=== PATIENT | female | born 1985 | race Caucasian/White ===

== ENCOUNTER 2016-11-15 18:31 | Emergency (ER) | payer OTHER ==
[~2016-11-15] VITALS: Ht 165.1 cm; Wt 68.0 kg
[~2016-11-15 18:31] MED LIST: ALBU18HF INHALATION; RANI150T9 PO
[2016-11-15 18:43] VITALS: Ht 165.1 cm; Wt 68.0 kg
--- NOTE | 2016-11-15 19:05 | EN ---
Date/Time of Note Date/Time of Note DATE: 11/15/16 TIME: 19:03 CIELO WRIGHT NP Nov 15, 2016 19:05 will be sent to ED2 for medications. CIELO WRIGHT NP Nov 15, 2016 19:05
--- NOTE | 2016-11-15 19:19 | ERD ---
ER Documentation Chief Complaint Date/Time DATE: 11/15/16 TIME: 19:14 Chief Complaint sore throat/cough x 1 day. denies abd pain HPI 30-year-old female who is approximately 31 weeks is complaining of sore throat since last night, and cough since this morning. Patient states that she cannot eat anything because of pain, and is feeling weak. She is also complaining of headache and already chest pain. Patient reports normal movements. Patient has history of asthma. She did not take any medications at home. Denies fever. Denies shortness of breath. Denies abdominal pain or pelvic pain. Denies vaginal bleeding or other vaginal discharge. ROS All systems reviewed and are negative except as per history of present illness. Medications Home Meds Active Scripts Sodium Chloride (Saline Nasal Mist) 126 Ml Mist, 2 SPRAY NASAL Q2H Y for NASAL CONGESTION, #1 BOTTLE Prov:CIELO WRIGHT. STEEL ENGRAVER 11/15/16 Acetaminophen* (Tylophen*) 500 Mg Capsule, 1 CAP PO Q6H Y for PAIN AND OR ELEVATED TEMP, #20 CAP Prov:CIELO WRIGHT. STEEL ENGRAVER 11/15/16 Ranitidine Hcl* (Zantac*) 150 Mg Tablet, 150 MG PO BID Y for EPIGASTRIC PAIN, # 30 TAB Prov:YU JONES DO 04/22/16 Albuterol Sulfate* (Ventolin HFA*) 18 Gm Hfa.aer.ad, 2 PUFF INHALATION Q4H, #1 INHALER Prov:KYAW MALONEY PA-C 03/21/16 Allergies Allergies: Coded Allergies: No Known Drug Allergies (Verified Allergy, Unknown, 11/15/16) PMhx/Soc History of Surgery: No Anesthesia Reaction: No Hx Neurological Disorder: No Hx Respiratory Disorders: Yes (BRONCHITIS) Hx Cardiac Disorders: No Hx Psychiatric Problems: No Hx Miscellaneous Medical Probl: Yes (GASTRIC ULCER) Hx Alcohol Use: Yes (X1DAY/WEEK) Hx Substance Use: No Hx Tobacco Use: Yes (X1PACK/WEEK) Physical Exam Vitals Vital Signs Date Time Temp Pulse Resp B/P Pulse Ox O2 Delivery O2 Flow Rate FiO2 11/15/16 18:43 99.1 112 20 145/62 97 Physical Exam General impression: Well-developed, well-nourished. Alert, oriented, in no acute distress Head: Normocephalic, atraumatic. Eyes: PERRL, EOM normal. Conjunctiva not injected. ENT: Nasal mucosa erythematous and swollen with clear nasal discharge. Oral mucosa normal. Oropharynx mildly erythematous, no pharyngeal swelling or exudates. Neck: Supple, nontender. No lymphanopathy. No nuchal rigidity. Respiration: Normal respiratory effort. Lungs clear to auscultate bilaterally. No wheezes, rales or rhonchi. Cardiovascular: Regular rate and rhythm. No murmurs or extra heart sounds. Abdomen: Abdomen normal to inspection. Nontender. No masses or organomegaly. Bowel sounds normal. Neuro: Mental status normal, speech normal. SLAG SKIMMER grossly intact. Skin: Normal turgor. No rash or lesions. Psych: Normal mood and affect. Procedures/MDM Patient is afebrile, in no respiratory distress. Lungs are clear to auscultate. I doubt that patient has pneumonia or bronchitis. Likely patient's symptoms are result of viral upper respiratory infection. She has no sign of strep pharyngitis, likely her pharyngitis is viral as well. Patient is approximately 31 weeks , she does not have any abdominal pain or pelvic pain. She reports normal movements. She does not have any vaginal bleed or other vaginal discharge. I have low suspicion for labor. Patient appears well, stable for discharge and outpatient management. Medical decision making shared with patient and family. Education provided to patient and family. Patient and family expressed understanding of the plan. Medications on discharge: Saline nasal spray, Tylenol. Follow-up: Primary care provider in 2-3 days or return to ED if worse. CIELO WRIGHT NP Nov 15, 2016 19:19
[2016-11-15] MEDS ORDERED: SODI126M NASAL (19:20)
[2016-11-15] MEDS ORDERED: ACET500C5 PO (19:20)
== END 2016-11-15 19:22 | disposition home or self-care (01) ==
LOC: E/R 18:31
DX: O99.513 Diseases of the respiratory system complicating pregnancy, third trimester (principal); J02.9 Acute pharyngitis, unspecified; Z3A.31 31 weeks gestation of pregnancy
CPT/HCPCS: 99283

== ENCOUNTER 2016-12-05 23:05 | Outpatient (CLI) | payer OTHER ==
[~2016-12-05] VITALS: Ht 165.1 cm; Wt 68.6 kg
[~2016-12-05 23:05] MED LIST changes: +ACET500C5 PO; +SODI126M NASAL
[2016-12-05 23:32] VITALS: BP 110/63; PULSE 100; RESP 16
[2016-12-05] MEDS ORDERED: PNV91TAB3 PO (23:39)
[2016-12-05] MEDS ORDERED: VERA10 NASAL (23:41)
--- NOTE | 2016-12-06 00:45 | PN ---
Date/Time of Note Date/Time of Note DATE: 12/06/16 TIME: 00:39 OB Subjective Subjective Subjective 31 yo P0 @ 34 wks presents w ctx. She has had abdominal pain all day and has a relative who is sick w a URI. Good FM,no LOF, no VB OB Objective Objective Objective Nml VS Abdomen- gravid, n/t SVE- l/c/p FHT- CAt I [place]- irreg ctx FFN-neg Abdomen: WNL Cervical Dilatation: None Effacement: 0% Accelerations: Accelerations Present Decelerations: No Decelerations Varibility: Moderate OB Assessment/Plan Reason for admission: labor Other Assessment: 31 yo P0 @ 34 wks, r/o PTL - reassuring status - neg FFN - has some irreg ctx Other plan: will IV hydrate CBC and U/a to r/o infection BPP If all nml, d/c home w PTL precautions BLANCA ARREDONDO MD Dec 06, 2016 00:45
[2016-12-06] MEDS ORDERED: LACTATED RINGER'S 1,000 ML IV ONE (01:00)
[2016-12-06 01:08] LABS: ADD UMIC YES; URINE BILIRUBIN (Dip) NEGATIVE (NEGATIVE); URINE BLOOD (Dip) NEGATIVE (NEGATIVE); URINE COLOR LT. YELLOW (YELLOW); URINE GLUCOSE (Dip) NEGATIVE (NEGATIVE); URINE KETONES (Dip) 3+ (NEGATIVE); URINE LEUKOCYTE ESTERASE (Dip) TRACE (NEGATIVE); URINE NITRITE (Dip) NEGATIVE (NEGATIVE); URINE TOTAL PROTEIN (Dip) NEGATIVE (NEGATIVE); URINE UROBILINOGEN (Dip) 0.2 E.U./dL (0.1-1.0)
[2016-12-06 01:29] LABS: ADD SCAN DIFF NO
[2016-12-06 01:37] LABS: BASOPHIL # 0.1 10^3/ul (0.0-0.1); BASOPHILS % 0.3 % (0.0-2.0); EOSINOPHILS # 0.1 10^3/ul (0.0-0.5); EOSINOPHILS % 0.7 % (0.0-7.0); HEMATOCRIT 39.8 % (37.0-47.0); HEMOGLOBIN 13.4 g/dl (12.0-16.0); LYMPHOCYTES # 1.6 10^3/ul (0.8-2.9); LYMPHOCYTES % 11.1 % (15.0-51.0); MEAN CORPUSCULAR HEMOGLOBIN 30.7 pg (29.0-33.0); MEAN CORPUSCULAR HGB CONC 33.7 g/dl (32.0-37.0); MEAN CORPUSCULAR VOLUME 91.1 fl (82.0-101.0); MEAN PLATELET VOLUME 9.4 fl (7.4-10.4); MONOCYTE # 0.7 10^3/ul (0.3-0.9); MONOCYTES % 4.9 % (0.0-11.0); NEUTROPHIL # 12.2 10^3/ul (1.6-7.5); NEUTROPHILS % 82.6 % (39.0-77.0); PLATELET COUNT 327 10^3/UL (140-415); RED BLOOD COUNT 4.37 10^6/ul (4.20-5.40); RED CELL DISTRIBUTION WIDTH 12.6 % (11.5-14.5); WHITE BLOOD COUNT 14.7 10^3/ul (4.8-10.8)
[2016-12-06 01:37] LABS: SQUAMOUS EPITHELIAL CELL,UR RARE; URINE RBCS 0-2 /HPF (0)
--- NOTE | 2016-12-06 01:43 | RADRPT ---
PROCEDURE: Biophysical profile. CLINICAL INDICATION: Pelvic pain. TECHNIQUE: Multiple sonographic images of the pelvis were obtained with transabdominal technique. COMPARISON: No prior studies are available for comparison. FINDINGS: There is a single living intrauterine gestation with the fetus in a vertex position. The placenta i s anterior in location, grade 1. heart tones of 137 beats per minute are identified. There is normal amniotic fluid volume with an MAURICIO of 10.3 cm. breathing movements = 2 Gross body movements = 2 tone = 2 Qualitative AFV = 2 IMPRESSION: Biophysical profile 8 out of 8. .Baljeet Mays MD, Date Time Electronically viewed and signed by .Baljeet Mays MD, on 12/06/2016 01:43 .T/
--- NOTE | 2016-12-06 03:24 | TRIAGE ---
OB Triage Datetime Report Generated by CPN: 12/06/2016 03:23 Datetime: 12/06/2016 02:30 Stage of : OB Triage Labor Evaluation Frequency: 2-6 Monitor Mode: External Duration (sec)2399: 40-60 Quality: Moderate Resting Tone Dewey: Relaxed Heart Rate FHR Baseline Rate: 135 Monitor Mode: External US Variability: Moderate 6-25 bpm Accelerations: 15X15 Decelerations: None Pain Assessment Pain Scale: 6 Pain Presence: Intermittent Pain Type: Cramping; Contraction Pain Location: Abdomen Datetime: 12/06/2016 01:30 Stage of : OB Triage Labor Evaluation Frequency: 2 1/2-3 Monitor Mode: External Duration (sec)2399: 40-60 Quality: Moderate Resting Tone Dewey: Relaxed Heart Rate FHR Baseline Rate: 135 Monitor Mode: External US Variability: Moderate 6-25 bpm Accelerations: 15X15 Decelerations: None Category: Category I Pain Assessment Pain Scale: 6 Pain Presence: Intermittent Pain Type: Cramping; Contraction Pain Location: Abdomen Datetime: 12/06/2016 00:35 Stage of : OB Triage Labor Evaluation Frequency: 2-6 Monitor Mode: External Duration (sec)2399: 60 Quality: Mild Pattern: Normal: <= 5 Contractions in 10 Minutes Resting Tone Dewey: Relaxed Heart Rate FHR Baseline Rate: 130 Monitor Mode: External US FHR Baseline Changes: No Baseline Change Variability: Moderate 6-25 bpm Accelerations: 15X15 Decelerations: None Category: Category I Datetime: 12/06/2016 00:01 Vaginal Exam Dilatation (cms): 0.0 Effacement (%): 0 Station: -3 Exam By: EL Membrane Status: Intact Datetime: 12/05/2016 23:32 Stage of : OB Triage Datetime: 12/05/2016 23:25 Assessment Type: Triage Maternal Assessment Level of Consciousness: Fully Conscious DTR's/Clonus: DTRs 2+ Headache: Denies Blurred Vision: No Respiratory Effort: Unlabored Nausea/Vomiting: Denies RUQ Epigastric Pain: Denies Lower Extremities Edema: None Degree: None Upper Extremities Edema: None Degree: None Facial Edema: None Datetime: 12/05/2016 23:24 Time of Arrival: 12/05/2016 23:02 EGA: 34.0 Arrived By: Wheelchair Arrived From: Emergency Dept Chief Complaint: CONTRACTIONS Movement: Present Contractions: Irregular Time Contractions Began: 12/05/2016 07:00 Contractions: 2-5 Rupture of Membranes: Denies Vaginal Bleeding: None Vaginal Discharge: Denies Recent Sexual Intercouse: Denies Abdominal Trauma: Not Applicable Patient Complaints: Contractions Time Provider Notified: 12/05/2016 23:33 Provider Notified: ARREDONDO Datetime: 12/05/2016 23:20 Monitor Mode: External Contraction Comments: TOCO PLACED Monitor Mode: External US Comments: US PLACED; FHT 145 Pain Assessment Pain Scale: 8 Pain Presence: Intermittent Pain Type: Cramping; Contraction Pain Location: Abdomen Datetime: 12/05/2016 23:11 Membrane Status: Intact
== END 2016-12-06 03:00 | disposition home or self-care (01) ==
LOC: OBT 23:05 → L-D 23:06 → OBT 12-06 03:00
PROVIDERS: ATTEND Obstetrics & Gynecology
DX: O62.9 Abnormality of forces of labor, unspecified (principal); O60.03 Preterm labor without delivery, third trimester; R10.2 Pelvic and perineal pain; Z3A.34 34 weeks gestation of pregnancy
CPT/HCPCS: 36415; 76818; 81001; 82731; 85025; 96360; 96361; J7120; Z7500; 81003; G0463

== ENCOUNTER 2017-01-20 01:30 | Outpatient (CLI) | payer OTHER ==
[~2017-01-20 01:30] MED LIST changes: -ACET500C5 PO; +PNV91TAB3 PO; -RANI150T9 PO; -SODI126M NASAL; +VERA10 NASAL
[2017-01-20 01:37] VITALS: BP 117/59; PULSE 69; RESP 18
--- NOTE | 2017-01-20 04:32 | RADRPT ---
PROCEDURE: Biophysical profile. CLINICAL INDICATION: Pelvic pain. TECHNIQUE: Multiple sonographic images of the pelvis were obtained with transabdominal technique. COMPARISON: 12/06/2016. FINDINGS: There is a single living intrauterine gestation with the fetus in a vertex position. The placenta i s anterior in location, grade II. heart tones of 141 beats per minute are identified. There i s low normal amniotic fluid volume with an MAURICIO of 8.9 cm. breathing movements = 2 Gross body movements = 2 tone = 2 Qualitative AFV = 2 IMPRESSION: Biophysical profile 8 out of 8. .Baljeet Mays MD, MD Date Time Electronically viewed and signed by .Baljeet Mays MD, MD on 01/20/2017 04:31 .T/
--- NOTE | 2017-01-20 06:27 | QN ---
Documentation Comment Laborist Dr Tirado's pt 31 y.o. G1 with an IUP at 40w3d c/o UC's/bleeding. No leaking. +FM. PMHx: none. PSHx: none. NKDA. 117/59 T=98.0 VE: thick/closed/-3/soft/unable to assess presenting part. BPP: 05/13. MAURICIO 8.9cm. VTX. Anterior placenta. NST: baseline 130 bpm with accels to 150 bpm. UC's q 5 to 11 minutes, mild. A: IUP at 40w3d. Prodromal labor. P: D/C home. Return 01/23 for f/u NST/BPP/Cx check if not yet delivered. ABRAM KRAUSE MD Jan 20, 2017 06:27
== END 2017-01-20 06:43 | disposition home or self-care (01) ==
LOC: OBT 01:30 → L-D 01:31 → OBT 06:43
PROVIDERS: ATTEND Obstetrics & Gynecology
DX: O62.9 Abnormality of forces of labor, unspecified (principal); O46.8X3 Other antepartum hemorrhage, third trimester; R10.2 Pelvic and perineal pain; Z3A.40 40 weeks gestation of pregnancy
CPT/HCPCS: 76818; Z7500; G0463

== ENCOUNTER 2017-01-21 15:42 | Inpatient (IN) | payer OTHER ==
[~2017-01-21] VITALS: Ht 165.1 cm; Wt 75.6 kg
[2017-01-21 15:49] VITALS: BP 114/64; PULSE 81; RESP 18; Ht 165.1 cm; Wt 75.6 kg
--- NOTE | 2017-01-21 16:45 | RADRPT ---
PROCEDURE: US OB CLINICAL INDICATION: Vaginal bleeding TECHNIQUE: Multiple sonographic images of the pelvis were obtained. The images were reviewed on a PACS workstation. COMPARISON: Obstetrical ultrasound from 12/06/2016 FINDINGS: The cervix is not well visualized. There is a single viable intrauterine gestation. Cardiac activity is present with 143 beats per minute. There is a vertex presentation. The placenta is anterior. There is no evidence for an abruption or placenta previa. There is a subjectively normal amount of amniotic fluid. Measurements were made in order to determine age. The results are as follows (cm): BPD =9.40 HC =33.81 AC =34.93 FL =7.56 Estimated gestational age by ultrasound of approximately 38 weeks, 6 days. The estimated date of delivery by ultrasound is 01/29/2017. Reported gestational age by LMP of approximately 40 weeks, 4 days. The reported date of delivery by LMP is 01/17/2017. EFW = 3589 grams (39th percentile) IMPRESSION: Single viable intrauterine gestation of approximately 38 weeks, 6 days . The estimated date of delivery is 01/29/2017 . Dating by ultrasound is within 12 days of dating by LMP. Cephalic presentation. Estimated weight is in the 39th percentile. RPTAT: EE Physician Christian Date Time Electronically viewed and signed by Physician Christian on 01/21/2017 16:45 /
--- NOTE | 2017-01-21 16:48 | RADRPT ---
PROCEDURE: US OB biophysical profile. CLINICAL INDICATION: evaluation TECHNIQUE: Multiple sonographic images of the pelvis were obtained. The images were reviewed on a PACS workstation. COMPARISON: Obstetrical ultrasound from 01/20/2017 FINDINGS: There is a single viable intrauterine gestation. Cardiac activity is present with 146 beats per min melissa. There is a vertex presentation. The placenta is anterior. There is no evidence of placental abruption. There is a normal amount of amniotic fluid with an MAURICIO = 10.6 cm. Biophysical profile: movement 2/2 tone 2/2. breathing 2/2 MAURICIO 2/2 Total 05/13 RPTAT: AA . IMPRESSION: Normal biophysical profile. Normal MAURICIO. Physician Christian Date Time Electronically viewed and signed by Physician Christian on 01/21/2017 16:48 RA/
[2017-01-21] MEDS ORDERED: CARBOPROST 250 MCG INJ IM PRN (18:00)
[2017-01-21] MEDS ORDERED: BUTORPHANOL 2 MG INJ IV PRN (18:00)
[2017-01-21] MEDS ORDERED: METHYLERGONOVINE 0.2 MG INJ IM PRN (18:00)
[2017-01-21] MEDS ORDERED: OXYTOCIN 30 UNITS/LR 500 ML IV PRN (18:00)
[2017-01-21] MEDS ORDERED: IBUPROFEN 600 MG TAB PO PRN (18:00)
[2017-01-21] MEDS ORDERED: LIDOCAINE 1% (MPF) 30 ML INJ INJ PRN (18:00)
[2017-01-21] MEDS ORDERED: OXYTOCIN 30 UNITS/LR 500 ML IV SCH ×3 (18:00→22:30)
[2017-01-21] MEDS ORDERED: LACTATED RINGER'S 1,000 ML IV PRN (18:00)
[2017-01-21] MEDS ORDERED: MISOPROSTOL 200 MCG TAB PR PRN (18:00)
--- NOTE | 2017-01-21 18:17 | TRIAGE ---
OB Triage Datetime Report Generated by CPN: 01/21/2017 18:17 Datetime: 01/21/2017 17:09 Vaginal Exam Dilatation (cms): 1.5 Effacement (%): 90 Station: -2 Exam By: Candy RN Datetime: 01/21/2017 16:18 Labor Evaluation Frequency: 6-8 Monitor Mode: External Duration (sec)2399: 60-110 Quality: Moderate Pattern: Normal: <= 5 Contractions in 10 Minutes Resting Tone Kaibab: Relaxed Heart Rate FHR Baseline Rate: 145 Monitor Mode: External US FHR Baseline Changes: No Baseline Change Variability: Moderate 6-25 bpm Accelerations: 15X15 Decelerations: None Category: Category I Datetime: 01/21/2017 15:50 Assessment Type: Triage Time of Arrival: 01/21/2017 15:34 EGA: 40.4 Arrived By: Wheelchair Arrived From: Emergency Dept Chief Complaint: UC and vaginal bleeding Movement: Present Contractions: Regular Rupture of Membranes: Denies Vaginal Bleeding: Normal Show Vaginal Discharge: Present Recent Sexual Intercouse: Denies Abdominal Trauma: Not Applicable Patient Complaints: Contractions; Other Time Provider Notified: 01/21/2017 16:58 Provider Notified: Celestino Initial Plan: OB US for placenta placement, EFW, BPP. SVE. Maternal Assessment Level of Consciousness: Fully Conscious DTR's/Clonus: DTRs 2+; No Clonus Headache: Denies Blurred Vision: No Respiratory Effort: Unlabored; Regular Rhythm; Equal Expansion Breath Sounds, Left: Clear and Equal Breath Sounds, Right: Clear and Equal Nausea/Vomiting: Denies RUQ Epigastric Pain: Denies Lower Extremities Edema: Bilateral Lower Extremities Degree: 1+ Upper Extremities Edema: Bilateral Upper Extremities Degree: Trace Facial Edema: None Fall Risk Assessment History of Falling: (0) No Secondary Diagnosis: (0) No Ambulatory Aid: (0) Bedrest/Nurse Assist IV Therapy: (0) No Gait: (0) Normal/Bedrest/Immobile Mental Status: (0) Oriented to Own Ability Fall Score: 0 Fall Risk Score Definition: No Risk: No action required Datetime: 01/21/2017 15:44 Pain Assessment Pain Scale: 8 Pain Presence: Intermittent Pain Type: Contraction Pain Location: Abdomen Pain Goal: 2 Pain Relief Measures: Comfort Measures Datetime: 01/21/2017 15:42 Stage of : OB Triage Datetime: 01/20/2017 06:11 Stage of : OB Triage Vaginal Exam Dilatation (cms): 0.5 Effacement (%): 40 Station: -3 Exam By: Dr Peres Datetime: 01/20/2017 06:00 Labor Evaluation Frequency: IRREG Monitor Mode: External Quality: Mild Pattern: Normal: <= 5 Contractions in 10 Minutes Resting Tone [place]: Relaxed Heart Rate FHR Baseline Rate: 135 Monitor Mode: External US FHR Baseline Changes: No Baseline Change Variability: Moderate 6-25 bpm Accelerations: 15X15 Decelerations: None Category: Category I Datetime: 01/20/2017 04:45 Labor Evaluation Frequency: IRREGULAR Monitor Mode: External Duration (sec)2399: 70-100 Quality: Mild Pattern: Normal: <= 5 Contractions in 10 Minutes Resting Tone [place]: Relaxed Heart Rate FHR Baseline Rate: 135 Monitor Mode: External US Variability: Moderate 6-25 bpm Accelerations: 15X15 Decelerations: None Category: Category I Pain Assessment Pain Scale: 4 Pain Presence: Intermittent Pain Type: Contraction Pain Location: Abdomen; Back Pain Goal: 0 Pain Relief Measures: Comfort Measures Datetime: 01/20/2017 04:13 Monitor Mode: External Monitor Mode: External US Datetime: 01/20/2017 03:46 Vaginal Exam Dilatation (cms): 0.5 Effacement (%): 70 Station: -3 Datetime: 01/20/2017 03:43 Comments: PT BACK ON MONITOR Datetime: 01/20/2017 02:39 Labor Evaluation Frequency: 4-7 Monitor Mode: External Duration (sec)2399: 80-120 Quality: Mild Pattern: Normal: <= 5 Contractions in 10 Minutes Resting Tone Kaib[place]: Relaxed Heart Rate FHR Baseline Rate: 135 Monitor Mode: External US Variability: Minimal - Undetectable to <=5 bpm Accelerations: Prolonged Decelerations: None Category: Category II Comments: PT OFF MONITOR TO AMBULATE AROUND UNIT. Datetime: 01/20/2017 02:23 Monitor Mode: External US Datetime: 01/20/2017 01:56 Assessment Type: Triage Maternal Assessment Level of Consciousness: Fully Conscious DTR's/Clonus: DTRs 2+; No Clonus Headache: Denies Blurred Vision: No Respiratory Effort: Unlabored; Regular Rhythm; Equal Expansion Nausea/Vomiting: Denies RUQ Epigastric Pain: Denies Lower Extremities Edema: None Degree: None Upper Extremities Edema: None Degree: None Facial Edema: None Datetime: 01/20/2017 01:46 Time of Arrival: 01/20/2017 01:30 EGA: 40.3 Arrived By: Wheelchair Arrived From: Emergency Dept Chief Complaint: CONTRACTIONS _ BLEEDING Movement: Present Contractions: Irregular Time Contractions Began: 01/19/2017 06:00 Contractions: IRREGULAR Rupture of Membranes: Denies Vaginal Bleeding: Normal Show Vaginal Discharge: Denies Recent Sexual Intercouse: Denies Abdominal Trauma: Not Applicable Patient Complaints: Contractions Time Provider Notified: 01/20/2017 02:37 Provider Notified: REICHE Initial Plan: LABOR CHECK Datetime: 01/20/2017 01:43 Vaginal Exam Dilatation (cms): 0.5 Effacement (%): 70 Station: -3 Datetime: 12/05/2016 23:24 EGA: 34.0
[2017-01-21] MEDS: LACTATED RINGER'S 1,000 ML IV SCH ×2 (18:32→20:33)
[2017-01-21 18:44] LABS: ADD SCAN DIFF NO
[2017-01-21 18:48] LABS: BASOPHILS % 0.3 % (0.0-2.0); EOSINOPHILS # 0.1 10^3/ul (0.0-0.5); EOSINOPHILS % 0.9 % (0.0-7.0); HEMATOCRIT 38.2 % (37.0-47.0); HEMOGLOBIN 13.1 g/dl (12.0-16.0); LYMPHOCYTES # 1.6 10^3/ul (0.8-2.9); MEAN CORPUSCULAR HGB CONC 34.3 g/dl (32.0-37.0); MEAN CORPUSCULAR VOLUME 90.3 fl (82.0-101.0); MEAN PLATELET VOLUME 9.5 fl (7.4-10.4); MONOCYTE # 0.5 10^3/ul (0.3-0.9); MONOCYTES % 5.9 % (0.0-11.0); NEUTROPHILS % 75.4 % (39.0-77.0); PLATELET COUNT 261 10^3/UL (140-415); RED BLOOD COUNT 4.23 10^6/ul (4.20-5.40); RED CELL DISTRIBUTION WIDTH 12.7 % (11.5-14.5); WHITE BLOOD COUNT 9.2 10^3/ul (4.8-10.8)
[2017-01-21 19:01] LABS: INR 1.04; PROTIME 13.6 Sec (12.2-14.2); PT RATIO 1.1
[2017-01-21 19:02] LABS: PARTIAL THROMBOPLASTIN TIME 24.5 Sec (25.0-35.0)
[2017-01-21] MEDS ORDERED: CITRIC ACID/NA CITRATE 30 ML CUP ONE (20:41)
[2017-01-21] MEDS ORDERED: LACTATED RINGER'S 1,000 ML IV ONE (20:42)
[2017-01-21] MEDS ORDERED: ONDANSETRON 4 MG INJ ONE (20:42)
[2017-01-21] MEDS ORDERED: FENTAnyl 2MCG/ML-ROPIV 0.2% 100 ML ONE (20:46)
[2017-01-21] MEDS ORDERED: CITRIC ACID/NA CITRATE 30 ML CUP PO ONE (21:00)
[2017-01-21] MEDS ORDERED: DIPHENHYDRAMINE 50 MG INJ IV PRN (21:00)
[2017-01-21] MEDS ORDERED: morphine 2 MG INJ IV PRN ×2 (21:00)
[2017-01-21] MEDS ORDERED: PROCHLORPERAZINE 10 MG INJ IV PRN (21:00)
[2017-01-21] MEDS ORDERED: ONDANSETRON 4 MG INJ IV ONE (21:00)
[2017-01-21] MEDS ORDERED: ONDANSETRON 4 MG INJ IV PRN (21:00)
[2017-01-21] MEDS ORDERED: NALOXONE (0.4 MG/ML) INJ IV PRN (21:00)
[2017-01-21] MEDS ORDERED: FENTAnyl 2MCG/ML-ROPIV 0.2% 100 ML BAG EPI SCH (21:00)
[2017-01-21] MEDS ORDERED: KETOROLAC 30 MG INJ IV PRN (21:00)
[2017-01-21] MEDS ORDERED: AMPICILLIN 2 GM/NS (PMX) 100 ML IV ONE (22:30)
[2017-01-22] VITALS (8 sets, daily range): BP systolic 105–121; BP diastolic 59–68; PULSE 79–93; RESP 16–20
--- NOTE | 2017-01-22 00:50 | HP ---
Date/Time of Note Date/Time of Note DATE: 01/22/17 TIME: 00:35 OB - History Hx of Present Free Text/Dictation 30y.o primigravida at 40w4d came in with c/o vaginal bleeding and uterine contreactions, membrane intact ve 2cm 90% -2 uc every 6-7 min admitted for expectant management poss augmentation efw 3589gm placenta anterior noevidence of abruptio Estimated Due Date: Jan 17, 2017 : 1 Para: 0 Spontaneous : 0 Therapeutic : 0 Care: Limited Care Obstetrical Complications: None Medical Complications: Respiratory Past Family/Social History * Past Medical, Surgical, Family and Obstetric Histories reviewed from chart. Blood Type: B+ RPR/VDRL: Negative GBS Status: Unknown HBsAG: Negative OB Admission Exam Vital Signs Vital Signs Vital Signs Date Time Temp Pulse Resp B/P Pulse Ox O2 Delivery O2 Flow Rate FiO2 01/21/17 15:49 98.0 81 18 114/64 Room Air Physical Exam HEENT: WNL Heart: Rhythm Normal Lungs: Clear, Equal Abdomen: WNL Extremities: Normal Reflexes: Normal Cervical Dilatation: 2cm Effacement: Other (90%) Station: -2 Membranes: Intact Amniotic Fluid: Unevaluable Heart Rate: 140's Accelerations: Accelerations Present Decelerations: No Decelerations Varibility: Moderate Contractions on Admission: 6-10 Minutes Apart Intensity: Moderate Last 72 hours Lab Results CBC & BMP 01/21/17 18:25 OB Assessment/Plan Other Assessment: IUP 40w4d in early labor Plan: Expectant Management Other plan: poss augmentation LALITHA AYALA MD Jan 22, 2017 00:46
[2017-01-22] MEDS: LACTATED RINGER'S 1,000 ML IV SCH (01:32)
[2017-01-22] MEDS: AMPICILLIN 1 GM/NS (PMX) 50 ML IV SCH ×3 (02:28→10:08)
--- NOTE | 2017-01-22 12:51 | LDN ---
Date/Time of Note Date/Time of Note DATE: 01/22/17 TIME: 12:48 Delivery Summary Thick terminal meconium noted. cord along the neck and body x 1 noted. Weeks of Gestation 40 weeks and 4 days Placenta Delivered: Spontaneously Perineal laceration: 2 Laceration repair: second degree laceration Anesthesia type: Epidural Estimated blood loss: 300 Sponge & Needle done & correct: Yes All needle counts correct: Yes Any foreign bodies felt in the: No Problems: Infant Delivery Information Sex Infant Sex: male Apgars 1 Minute: 9 5 Minute: 9 Suctioning Nose & mouth suctioned at rosette: Yes Delee suction performed: Yes Umbilical Cord Umbilical cord with: 3 Vessels Cord presentations: nuchal cord Cord Blood was obtained: Yes SANGITA SCHERER MD Jan 22, 2017 12:50
[2017-01-22] MEDS: LACTATED RINGER'S 1,000 ML IV* SCH ×2 (12:52→20:52)
[2017-01-22] MEDS ORDERED: OXYTOCIN 30 UNITS/LR 500 ML IV PRN (13:00)
[2017-01-22] MEDS ORDERED: ACETAMINOPHEN 325 MG TAB PO PRN (13:00)
[2017-01-22] MEDS: IBUPROFEN 600 MG TAB PO SCH ×2 (13:00→19:01)
[2017-01-22] MEDS ORDERED: ZOLPIDEM 5 MG TAB PO PRN (13:00)
[2017-01-22] MEDS ORDERED: METHYLERGONOVINE 0.2 MG INJ IM PRN (13:00)
[2017-01-22] MEDS ORDERED: ALBUTEROL HFA 8 GM INHALER INH SCH (13:00)
[2017-01-22] MEDS ORDERED: DIPHENHYDRAMINE 25 MG CAP PO PRN (13:00)
[2017-01-22] MEDS: ALBUTEROL 18 GM INHALER INH SCH ×3 (13:00→20:58)
[2017-01-22] MEDS ORDERED: ONDANSETRON 4 MG INJ IV PRN (13:00)
[2017-01-22] MEDS ORDERED: CARBOPROST 250 MCG INJ IM PRN (13:00)
[2017-01-22] MEDS ORDERED: MISOPROSTOL 200 MCG TAB PR PRN (13:00)
[2017-01-22] MEDS: SENNA/DOCUSATE NA (8.6MG/50MG) TAB PO SCH ×2 (13:00→21:08)
[2017-01-22 14:34] LABS: HEMATOCRIT 37.9 % (37.0-47.0); HEMOGLOBIN 12.5 g/dl (12.0-16.0)
[2017-01-22] MEDS: WITCH HAZEL/GLYCERIN PAD PR PRN (15:34)
[2017-01-22] MEDS: LANOLIN 7 GM TUBE TOP PRN (15:35)
[2017-01-22] MEDS: ACETAMINOPHEN/CODEINE #3 TAB PO PRN ×2 (15:36→21:09)
[2017-01-23 00:19] VITALS: BP 105/58; PULSE 90; RESP 17
[2017-01-23] MEDS: IBUPROFEN 600 MG TAB PO SCH ×4 (00:19→17:52)
[2017-01-23] MEDS: ALBUTEROL 18 GM INHALER INH SCH ×4 (02:17→13:00)
[2017-01-23 04:00] VITALS: BP 101/54; PULSE 87; RESP 17
[2017-01-23 09:00] VITALS: BP 97/58; PULSE 97; RESP 16
[2017-01-23] MEDS: SENNA/DOCUSATE NA (8.6MG/50MG) TAB PO SCH ×2 (09:58→21:26)
[2017-01-23] MEDS: ACETAMINOPHEN/CODEINE #3 TAB PO PRN (09:59)
[2017-01-23] MEDS ORDERED: ALBUTEROL 18 GM INHALER INH PRN (15:30)
[2017-01-23 16:00] VITALS: BP 102/64; PULSE 75; RESP 16
[2017-01-23 19:45] VITALS: BP 99/64; PULSE 76; RESP 17
[2017-01-24] MEDS: IBUPROFEN 600 MG TAB PO SCH ×4 (00:20→17:57)
[2017-01-24] MEDS: LANOLIN 7 GM TUBE TOP PRN (02:09)
[2017-01-24 04:04] VITALS: BP 110/66; PULSE 82; RESP 16
[2017-01-24] MEDS: ACETAMINOPHEN/CODEINE #3 TAB PO PRN ×2 (04:04→11:12)
[2017-01-24] MEDS: WITCH HAZEL/GLYCERIN PAD PR PRN (04:08)
[2017-01-24 09:00] VITALS: BP 106/52; PULSE 68; RESP 16
[2017-01-24] MEDS ORDERED: VARICELLA VACCINE LIVE/PF 1,350 UNIT/0.5 ML ML SC* ONE (09:00)
[2017-01-24] MEDS ORDERED: DIPHTH/TET/ACEL PERTUSS (ADULT) 0.5 ML VIAL IM* ONE (09:00)
[2017-01-24] MEDS ORDERED: MEASLES,MUMPS,RUBELLA VACCINE INJ SC* ONE (09:00)
[2017-01-24] MEDS: SENNA/DOCUSATE NA (8.6MG/50MG) TAB PO SCH (11:07)
--- NOTE | 2017-01-24 12:34 | DS ---
Date/Time of Note Date/Time of Note DATE: 01/24/17 TIME: 12:33 Discharge Summary Admission/Discharge Info Admit Date/Time Jan 21, 2017 at 18:00 Discharge Date/Time Final Diagnosis term preg. vag delivery Patient Condition: Stable Hospital Course unremarkable Home Meds Active Scripts Albuterol Sulfate* (Ventolin HFA*) 18 Gm Hfa.aer.ad, 2 PUFF INHALATION Q4H, #1 INHALER Prov:KYAW MALONEY PA-C 03/21/16 Reported Medications Fluticasone Furoate* (Veramyst* Nasal) 27.5 Mcg/Clubb - 10 Gm Clubb.susp, 2 SPRAY NASAL DAILY, #1 EA 12/05/16 Pnv95/Ferrous Fumarate/FA ( [place]) 1 Each Tablet, 1 EACH PO DAILY, #1 TAB 12/05/16 MARTIN OROZCO MD Jan 24, 2017 12:34
--- NOTE | 2017-01-24 12:35 | QN ---
Documentation Comment doing well vss d/c home today seen by MARTIN Mosqueda MD Jan 24, 2017 12:35
--- NOTE | 2017-01-24 13:48 | PN ---
Date/Time of Note Date/Time of Note DATE: 01/24/17 TIME: 13:46 OB Subjective Subjective Subjective Patient without complaints. Ready to go home. OB Objective Objective Objective AFVSS Gen: NAD Abd: FF OB Assessment/Plan Other Assessment: PPD2 Other plan: Discharge home today. Pelvic rest. F/u in 3-6 weeks for visit. JOSÉ WELDON Jan 24, 2017 13:48
== END 2017-01-24 18:20 | disposition home or self-care (01) | DRG 775 ==
LOC: OBT 15:42 → L-D 15:43 → OBT 18:00 → L-D 18:00 → PP1 01-22 15:01
PROVIDERS: ADMIT Obstetrics & Gynecology; ATTEND Obstetrics & Gynecology
PROC: 10E0XZZ Delivery of Products of Conception, External Approach (ICD-10-PCS; principal; 2017-01-22)
PROC: 0KQM0ZZ Repair Perineum Muscle, Open Approach (ICD-10-PCS; 2017-01-22)
DX: O69.81X0 Labor and delivery complicated by cord around neck, without compression, not applicable or unspecified (principal); O48.0 Post-term pregnancy; O70.1 Second degree perineal laceration during delivery; Z3A.40 40 weeks gestation of pregnancy; Z37.0 Single live birth
CPT/HCPCS: 62319; 76815; 76818; 85014; 85018; 85025; 85610; 85730; 86592; 86900; 86901; 87340; 90715; 90716; G0463; J0290; J2405; J2590; J3010; J7120

== ENCOUNTER 2017-01-26 03:09 | Emergency (ER) | payer OTHER ==
[~2017-01-26] VITALS: Ht 165.1 cm; Wt 70.5 kg
[2017-01-26 03:11] VITALS: Ht 165.1 cm; Wt 70.5 kg
[2017-01-26] MEDS ORDERED: POLY17PO3 PO (12:03)
[2017-01-26] MEDS ORDERED: IBUP-1542 PO (12:03)
== END 2017-01-26 04:00 | disposition left against medical advice (07) ==
LOC: E/R 03:09
DX: Z53.21 Procedure and treatment not carried out due to patient leaving prior to being seen by health care provider (principal)

== ENCOUNTER 2017-01-26 04:26 | Emergency (ER) | payer OTHER ==
[~2017-01-26] VITALS: Ht 167.6 cm; Wt 70.5 kg
[~2017-01-26 04:26] MED LIST changes: -ALBU18HF INHALATION; -VERA10 NASAL
[2017-01-26 04:31] VITALS: Ht 167.6 cm; Wt 70.5 kg
[2017-01-26] MEDS ORDERED: SOD CHLORIDE 0.9% 1,000 ML IV STA (04:45)
[2017-01-26] MEDS ORDERED: morphine 4 MG/ML VIAL IV STA ×2 (04:45→06:24)
[2017-01-26] MEDS ORDERED: ONDANSETRON 4 MG INJ IV STA (04:45)
[2017-01-26 04:53] LABS: ADD SCAN DIFF NO
[2017-01-26 04:56] LABS: BASOPHILS % 0.3 % (0.0-2.0); EOSINOPHILS # 0.2 10^3/ul (0.0-0.5); EOSINOPHILS % 1.6 % (0.0-7.0); HEMATOCRIT 36.3 % (37.0-47.0); HEMOGLOBIN 12.2 g/dl (12.0-16.0); LYMPHOCYTES # 1.5 10^3/ul (0.8-2.9); MEAN CORPUSCULAR HEMOGLOBIN 30.9 pg (29.0-33.0); MEAN CORPUSCULAR HGB CONC 33.6 g/dl (32.0-37.0); MEAN CORPUSCULAR VOLUME 91.9 fl (82.0-101.0); MEAN PLATELET VOLUME 8.9 fl (7.4-10.4); MONOCYTE # 0.5 10^3/ul (0.3-0.9); MONOCYTES % 3.4 % (0.0-11.0); NEUTROPHIL # 11.4 10^3/ul (1.6-7.5); NEUTROPHILS % 83.2 % (39.0-77.0); PLATELET COUNT 330 10^3/UL (140-415); RED BLOOD COUNT 3.95 10^6/ul (4.20-5.40); RED CELL DISTRIBUTION WIDTH 12.7 % (11.5-14.5); WHITE BLOOD COUNT 13.7 10^3/ul (4.8-10.8)
[2017-01-26 05:04] LABS: INR 0.94; PROTIME 12.6 Sec (12.2-14.2)
[2017-01-26 05:05] LABS: PARTIAL THROMBOPLASTIN TIME 23.4 Sec (25.0-35.0)
[2017-01-26 05:08] LABS: ALBUMIN 3.4 g/dl (3.3-4.9); ALBUMIN/GLOBULIN RATIO 0.97; CALCIUM 9.1 mg/dl (8.4-10.2); CREATININE 0.53 mg/dl (0.44-1.00); TOTAL PROTEIN 6.9 g/dl (6.1-8.1)
[2017-01-26 05:37] LABS: ADD UMIC YES; URINE BILIRUBIN (Dip) NEGATIVE (NEGATIVE); URINE BLOOD (Dip) 2+ (NEGATIVE); URINE COLOR LT. YELLOW (YELLOW); URINE GLUCOSE (Dip) NEGATIVE (NEGATIVE); URINE KETONES (Dip) NEGATIVE (NEGATIVE); URINE LEUKOCYTE ESTERASE (Dip) NEGATIVE (NEGATIVE); URINE NITRITE (Dip) NEGATIVE (NEGATIVE); URINE TOTAL PROTEIN (Dip) NEGATIVE (NEGATIVE); URINE UROBILINOGEN (Dip) 0.2 E.U./dL (0.1-1.0)
[2017-01-26 06:08] VITALS: TEMP 99
[2017-01-26 06:28] LABS: SQUAMOUS EPITHELIAL CELL,UR OCCASIONAL; URINE RBCS 25-50 /HPF (0)
--- NOTE | 2017-01-26 08:13 | RADRPT ---
PROCEDURE: CT scan of the abdomen and pelvis without IV contrast. CLINICAL INDICATION: Mid abdominal pain. TECHNIQUE: Thin section axial, coronal and sagittal images were performed through the abdomen and pelvis without contrast. Radiation Dose: CTDI: 11 and DLP: 680 One or more of the following dose reduction techniques were used: - Automated exposure control. - Adjustment of the mA and/or kV according to patient size. Use of iterative reconstruction technique. COMPARISON: Pelvic sonogram 01/21/2017. FINDINGS: Soft tissues: There is diastasis rectus. Lungs and pleural spaces: There is peripheral atelectasis in the bases of the lungs. No acute infil trate or pleural effusion is identified. Heart: Normal. No pericardial effusion is identified. The liver, common bile duct and gallbladder: Normal. Gastrointestinal: There is a small hiatal hernia. The stomach is incompletely distended. There is fecal material throughout the colon. Portions of the colon and omental fat bulge between the rectus abdominis muscles. The small bowel loops have a normal caliber. Pancreas: Normal. Kidneys, bladder and adrenal glands : Normal. Spleen: Normal. Lymph nodes: Normal. Reproductive system and pelvis : The uterus is enlarged measuring 16 cm sagittal by 7.3 cm AP by 11. 3 cm transverse. No abnormal adnexal mass is identified. Increased attenuation is noted in the end ometrial cavity which likely is a result of a hemorrhage. Bony elements: There is disk space narrowing and ventral spondylosis at L5-S1. A 4 mm disk bulge is noted in the midline at the L5-S1. The other bony elements are normal. Vasculature: Normal. IMPRESSION: 1. 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 2. Rectus diastasis with omental fat and bowel loops bulging between the rectus femoris muscles. 3. Constipation. 4. Normal peripheral bibasilar atelectasis attributed to supine positioning. RPTAT:AAJJ Physician Sherri Date Time Electronically viewed and signed by Physician Sherri on 01/26/2017 08:12 /
--- NOTE | 2017-01-26 08:36 | ERD ---
ER Documentation Chief Complaint Date/Time DATE: 01/26/17 TIME: 08:35 Chief Complaint PT LEFT AND CAME BACK, SEVERE ABD PAIN S/P NORMAL VAG DELIVERY DC YESTERDAY HPI 31y/o female, s/p term vaginal delivery 01/22/2017, ambulatory to the ED c/o a three day h/o moderate to severe, crampy, diffuse, non-radiating lower abdominal pain and constipation. No N/V/D. Denies rectal pain or hemorrhoids. No dysuria, polyuria, hematuria or flank pain. No vaginal discharge or bleeding. No relieving or exacerbating factors. Denies breast pain or redness. Breast feeding. Denies depression. No fevers or chills. ROS All systems reviewed and are negative except as per history of present illness. Medications Home Meds Active Scripts Ibuprofen* (Motrin*) 600 Mg Tab, 600 MG PO Q6 Y for PAIN, #30 TAB Prov:AVNI CHEEK MD 01/26/17 Polyethylene Glycol* (Polyethylene Glycol*) 17 Gm Powd.pack, 17 GM PO BID, #60 PACKET Prov:AVNI CHEEK MD 01/26/17 Discontinued Reported Medications Pnv95/Ferrous Fumarate/FA ( Caplet) 1 Each Tablet, 1 EACH PO DAILY, #1 TAB 12/05/16 Fluticasone Furoate* (Veramyst* Nasal) 27.5 Mcg/[place] - 10 Gm [place].susp, 2 SPRAY NASAL DAILY, #1 EA 12/05/16 Discontinued Scripts Albuterol Sulfate* (Ventolin HFA*) 18 Gm Hfa.aer.ad, 2 PUFF INHALATION Q4H, #1 INHALER Prov:KYAW MALONEY PA-C 03/21/16 Allergies Allergies: Coded Allergies: No Known Drug Allergies (Verified Allergy, Unknown, 01/26/17) PMhx/Soc Reviewed in chart. As per HPI. History of Surgery: No Anesthesia Reaction: No Hx Neurological Disorder: No Hx Respiratory Disorders: Yes (BRONCHITIS) Hx Cardiac Disorders: No Hx Psychiatric Problems: No Hx Miscellaneous Medical Probl: Yes (GASTRIC ULCER) Hx Alcohol Use: Yes (occasionally) Hx Substance Use: No Hx Tobacco Use: Yes (X1PACK/WEEK) Smoking Status: Current every day smoker FmHx Family History: No coronary disease, No diabetes, No other Physical Exam Vitals Vital Signs Date Time Temp Pulse Resp B/P Pulse Ox O2 Delivery O2 Flow Rate FiO2 01/26/17 12:26 76 16 113/77 98 Room Air 01/26/17 06:08 99.0 78 22 118/78 99 01/26/17 04:31 98.8 104 20 176/71 97 Physical Exam Const: Alert, moderate distress due to pain. Head: Atraumatic Eyes: Normal Conjunctiva ENT: Normal External Ears, Nose and Mouth. Neck: Full range of motion. Nontender. No lymphadenopathy. Resp: BS are equal and clear to auscultation bilaterally. Cardio: Regular rate and rhythm, no murmurs Abd: Soft, non distended. Diffuse lower abdominal tenderness without rebound or guarding. No masses. Normal bowel sounds. : Deferred Skin: No petechiae or rashes Back: No midline or flank tenderness Ext: No cyanosis, or edema Neur: Awake and alert Psych: Anxious but not depressed Result Diagram: 01/26/17 0440 01/26/17 0440 Results 24 hrs Laboratory Tests Test 01/26/17 04:40 01/26/17 05:23 White Blood Count 13.710^3/ul Red Blood Count 3.9510^6/ul Hemoglobin 12.2g/dl Hematocrit 36.3% Mean Corpuscular Volume 91.9fl Mean Corpuscular Hemoglobin 30.9pg Mean Corpuscular Hemoglobin Concent 33.6g/dl Red Cell Distribution Width 12.7% Platelet Count 72556^3/UL Mean Platelet Volume 8.9fl Neutrophils % 83.2% Lymphocytes % 11.0% Monocytes % 3.4% Eosinophils % 1.6% Basophils % 0.3% Nucleated Red Blood Cells % 0.0/100WBC Neutrophils # 11.410^3/ul Lymphocytes # 1.510^3/ul Monocytes # 0.510^3/ul Eosinophils # 0.210^3/ul Basophils # 0.010^3/ul Nucleated Red Blood Cells # 0.010^3/ul Prothrombin Time 12.6Sec Prothrombin Time Ratio 1.0 INR International Normalized Ratio 0.94 Activated Partial Thromboplast Time 23.4Sec Sodium Level 138mmol/L Potassium Level 4.0mmol/L Chloride Level 106mmol/L Carbon Dioxide Level 24mmol/L Anion Gap 12 Blood Urea Nitrogen 9mg/dl Creatinine 0.53mg/dl Glucose Level 117mg/dl Calcium Level 9.1mg/dl Total Bilirubin 0.0mg/dl Direct Bilirubin 0.00mg/dl Indirect Bilirubin 0.0mg/dl Aspartate Amino Transf (AST/SGOT) 63IU/L Alanine Aminotransferase (ALT/SGPT) 69IU/L Alkaline Phosphatase 155IU/L Total Protein 6.9g/dl Albumin 3.4g/dl Globulin 3.50g/dl Albumin/Globulin Ratio 0.97 Lipase 66U/L Urine Color LT. YELLOW Urine Clarity CLEAR Urine pH 7.5 Urine Specific [place] 1.015 Urine Ketones NEGATIVE Urine Nitrite NEGATIVE Urine Bilirubin NEGATIVE Urine Urobilinogen 0.2 E.U./dL Urine Leukocyte Esterase NEGATIVE Urine Microscopic RBC 25-50/HPF Urine Microscopic WBC 0-2/HPF Urine Squamous Epithelial Cells OCCASIONAL Urine Hemoglobin 2+ Urine Glucose NEGATIVE% Urine Total Protein NEGATIVE Current Medications Medications (Trade) Dose Ordered Sig/Mariluz Route PRN Reason Start Time Stop Time Status Last Admin Dose Admin Sodium Chloride (NS) 1,000 ml @ 1,000 mls/hr Q1H STAT IV 01/26/17 04:45 01/26/17 05:44 DC 01/26/17 04:52 Morphine Sulfate (morphine) 4 mg ONCE STAT IV 01/26/17 04:45 01/26/17 04:48 DC 01/26/17 04:53 Ondansetron HCl (Zofran Inj) 4 mg ONCE STAT IV 01/26/17 04:45 01/26/17 04:48 DC 01/26/17 04:52 Morphine Sulfate (morphine) 4 mg ONCE STAT IV 01/26/17 06:24 01/26/17 06:26 DC 01/26/17 06:49 Ketorolac Tromethamine (Toradol) 15 mg ONCE STAT IV 01/26/17 11:14 01/26/17 11:15 DC 01/26/17 11:22 PROCEDURE: CT scan of the abdomen and pelvis without IV contrast. CLINICAL INDICATION: Mid abdominal pain. TECHNIQUE: Thin section axial, coronal and sagittal images were performed through the abdomen and pelvis without contrast. Radiation Dose: CTDI: 11 and DLP: 680 One or more of the following dose reduction techniques were used: - Automated exposure control. - Adjustment of the mA and/or kV according to patient size. Use of iterative reconstruction technique. COMPARISON: Pelvic sonogram 01/21/2017. FINDINGS: Soft tissues: There is diastasis rectus. Lungs and pleural spaces: There is peripheral atelectasis in the bases of the lungs. No acute infiltrate or pleural effusion is identified. Heart: Normal. No pericardial effusion is identified. The liver, common bile duct and gallbladder: Normal. Gastrointestinal: There is a small hiatal hernia. The stomach is incompletely distended. There is fecal material throughout the colon. Portions of the colon and omental fat bulge between the rectus abdominis muscles. The small bowel loops have a normal caliber. Pancreas: Normal. Kidneys, bladder and adrenal glands : Normal. Spleen: Normal. Lymph nodes: Normal. Reproductive system and pelvis : The uterus is enlarged measuring 16 cm sagittal by 7.3 cm AP by 11.3 cm transverse. No abnormal adnexal mass is identified. Increased attenuation is noted in the endometrial cavity which likely is a result of a hemorrhage. Bony elements: There is disk space narrowing and ventral spondylosis at L5-S1. A 4 mm disk bulge is noted in the midline at the L5-S1. The other bony elements are normal. Vasculature: Normal. IMPRESSION: 1. 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 2. Rectus diastasis with omental fat and bowel loops bulging between the rectus femoris muscles. 3. Constipation. 4. Normal peripheral bibasilar atelectasis attributed to supine positioning. RPTAT:AAJJ Physician Sherri Date Time Electronically viewed and signed by Physician Sherri on 01/26/2017 08:12 JM/ Procedures/MDM DOCUMENTS REVIEWED: ED nurse prior record REEXAMINATION/REEVALUATION: Time: 08:00. Pain decreased Exam improved. REEXAMINATION/REEVALUATION: Time: 09:00. Sleeping but c/o pain when aroused still c/o pain. REEXAMINATION/REEVALUATION: Time: 10:15. Ongoing pain and tenderness but no rebound or guarding. REEXAMINATION/REEVALUATION: Doing well. Pain decreased. Tolerating PO's. Feels well to go home. MEDICAL DECISION MAKINy/o female, s/p term vaginal delivery 01/22/2017, ambulatory to the ED c/o a three day h/o moderate to severe, crampy, diffuse, non-radiating lower abdominal pain and constipation. No CT reveals constipation and diastasis recti without evidence of bowel obstruction, incarceration, strangulation or other acute process including appendicitis, diverticulitis or cholelithiasis. No UTI or pyelonephritis. no evidence of endometritis. Pain likely secondary to constipation but the etiology not definitively established and a serious etiology is still possible. Patient understands the need to return to the ED if symptoms worsen and mandatory followup tomorrow either in the ED or with her PMD. CALLS/CONSULTS: Time 10:20, Dr. Arredondo, Refer to his note. CALLS/CONSULTS: Time 11:30, Dr. De La Torre, Recommends Discharge with analgesics, cathartics and outpatient followup. CALLS/CONSULTS: Time 11:30, Dr. Mendoza, Recommends Discharge with outpatient followup. Counseled patient and family regarding diagnostic workup, diagnosis and mandatory followup tomorrow. Understands to return to ED if symptoms recur, worsen or any other concerns including but not limited to worsening pain, fever , vomiting, headache, confusion, depression, leg pain/swelling, vaginal discharge or bleeding. . Departure Diagnosis: Primary Impression: Acute generalized abdominal pain Additional Impressions: Abdominal pain of unknown etiology state Constipation Constipation type: unspecified constipation type Qualified Code: K59.00 - Constipation, unspecified constipation type Diastasis recti Condition: AVNI Guerra MD Jan 26, 2017 08:36
[2017-01-26] MEDS ORDERED: KETOROLAC 15 MG INJ IV STA (11:14)
[2017-01-26] MEDS ORDERED: IBUP-1542 PO (12:03)
[2017-01-26] MEDS ORDERED: POLY17PO3 PO (12:03)
[2017-01-26 12:26] VITALS: BP 113/77; PULSE 76; RESP 16
--- NOTE | 2017-01-26 14:10 | CONS ---
DATE OF ADMISSION: 01/26/2017 DATE OF CONSULTATION: HISTORY OF PRESENT ILLNESS: This is a 31-year-old status post vaginal delivery done by Dr. Harris. The patient is from [facility], Dr. Sandoval is in charge of those formerly [facility] nics. Patient is admitted through the emergency room with generalized abdominal pain, no vomiting. Also, the patient mentioned that she had a bowel movement, no vaginal bleeding, no other associated symptoms. PAST MEDICAL HISTORY: Denies. PAST SURGICAL HISTORY: Denies. ALLERGIES: NKDA. PHYSICAL EXAMINATION: VITAL SIGNS: Stable. GENERAL: Normal. ABDOMEN: Generally tender, the tenderness was more pronounced in the upper abdomen around the diaph ragm area. Uterus was not tender. GENITAL: Shows no motion tenderness. LABS: White blood cell is 13.7 and also the CAT scan showed dilated colon and large amount of fecal material in the colon and bowels. ASSESSMENT AND PLAN: A 31-year-old afebrile status post vaginal delivery with constipation, no sign of endometritis is seen at this time. The patient had generalized abdominal pain. Due to that I d o recommend admission by hospitalist for pain control. Secondly, general surgery consult. If you lua ve any questions or any new symptoms, please do not hesitate to call [phone] and speak on-call [employer] s juliocesar this is a patient of Dr. Sandoval from [facility]. I do recommend contacting him dire ctly to get any further orders. Please do not hesitate to contact us if I do also recommend the pat ient to be placed on ofloxacin hours and doxycycline p.o. for 10 to 14 days. If there are any quest ions regarding this patient, please do not hesitate to contact us. Thank you for consulting with us . Dictated By: MARLON JUAREZ/SOBEIDA Conf#: [id number] DID#: [id number]
== END 2017-01-26 12:44 | disposition home or self-care (01) ==
LOC: E/R 04:26
DX: O90.89 Other complications of the puerperium, not elsewhere classified (principal); F17.210 Nicotine dependence, cigarettes, uncomplicated; R10.84 Generalized abdominal pain; K59.00 Constipation, unspecified; O71.89 Other specified obstetric trauma; R40.2142 Coma scale, eyes open, spontaneous, at arrival to emergency department; R40.2362 Coma scale, best motor response, obeys commands, at arrival to emergency department; R40.2252 Coma scale, best verbal response, oriented, at arrival to emergency department
CPT/HCPCS: 36415; 74176; 80053; 81001; 83690; 85025; 85610; 85730; 96374; 96375; 96376; J1885; J2270; J2405; J7030; P9612; Z7502; 81003

== ENCOUNTER 2019-04-27 21:26 | Emergency (ER) | payer OTHER ==
[~2019-04-27] VITALS: Ht 165.1 cm; Wt 58.9 kg
[~2019-04-27 21:26] MED LIST changes: +IBUP-1542 PO; +NAPR-985 PO; -PNV91TAB3 PO; +POLY17PO28 PO
[2019-04-27 21:36] VITALS: Ht 165.1 cm; Wt 58.9 kg
[2019-04-27] MEDS ORDERED: HYDROCODONE/APAP (5/325) TAB PO ONE (22:30)
[2019-04-28 00:23] VITALS: BP 112/75; PULSE 65; RESP 16
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
== END 2019-04-28 00:23 | disposition home or self-care (01) ==
LOC: FTE 21:26
DX: S09.93XA Unspecified injury of face, initial encounter (principal); Y04.2XXA Assault by strike against or bumped into by another person, initial encounter; Y92.9 Unspecified place or not applicable; Z87.891 Personal history of nicotine dependence
CPT/HCPCS: 70486; 81025; Z7502; Z7610